=== PATIENT | male | born 1975 | race American Indian/Alaskan Native ===

== ENCOUNTER 2022-05-21 10:42 | Outpatient (REF) | payer OTHER, SELFPAY ==
--- NOTE | ~2022-05-21 | XR_ITS ---
EXAMINATION: XR CHEST CLINICAL INFORMATION: Post Covid 19. COMPARISON: Chest radiograph 09/15/2018. TECHNIQUE: 2 views of the chest were obtained. FINDINGS: No significant abnormality is noted involving the heart, lungs, mediastinum, bony thorax or soft tissues. XR/XR chest 2V IMPRESSION: Unremarkable examination.
[2022-05-21 11:39] LABS: MANUAL DIFF FLAG NO
[2022-05-21 11:54] LABS: Basophils Absolute Auto 0.1 X10*3/uL (0.0-0.2); Basophils Percent Auto 0.9 % (0-2); Eosinophils Absolute Auto 0.4 X10*3/uL (0.0-0.4); Eosinophils Percent Auto 4.8 % (0-4); Hemoglobin 14.5 g/dl (14.0-18.0); Imm Gran Abs Auto 0.02 X10*3/uL (0.00-0.03); Imm Gran Pct Auto 0.3 % (0.0-0.4); Lymphocytes Absolute Auto 2.3 X10*3/uL (1.2-4.9); Lymphocytes Percent Auto 30.2 % (20-40); Mean Corpuscular HGB Conc 31.5 g/dl (31.0-36.0); Mean Corpuscular Hemoglobin 25.5 pg (27.0-33.0); Mean Platelet Volume 11.3 fL (9.4-12.4); Monocytes Absolute Auto 0.9 X10*3/uL (0.1-1.2); Monocytes Percent Auto 11.4 % (2-11); Neutrophils Percent Auto 52.4 % (45-73); Platelet Count 301 X10*3/uL (160-400); Red Blood Count 5.68 X10*6/uL (4.60-5.80); Red Cell Distribution Width 14.3 % (11.0-16.0); White Blood Count 7.6 X10*3/uL (4.8-10.8)
[2022-05-21 12:42] LABS: Alanine Aminotransferase 55 U/L (0-40); Albumin Level 4.5 g/dL (3.5-5.0); Alkaline Phosphatase 61 U/L (39-117); Anion Gap 14 (12-20); Aspartate Amino Transferase 38 U/L (5-37); Bilirubin Total 0.6 mg/dL (0.0-1.0); Blood Urea Nitrogen 7 mg/dL (9-16); Calcium 9.3 mg/dL (8.4-10.2); Carbon Dioxide 24 mmol/L (22-29); Chloride 105 mmol/L (96-108); Cholesterol 171 mg/dL; Estimated Glomerular Filt Rate > 60; Glucose Fasting 100 mg/dL (60-99); HDL Cholesterol 31 mg/dL; LDL Cholesterol Calculated 114 mg/dl; Potassium 4.7 mmol/L (3.3-5.1); Sodium 138 mmol/L (135-145); Total Protein 7.8 g/dL (6.5-8.0); Triglycerides 133 mg/dL
[2022-05-21 13:00] LABS: TSH reflex Free T4 0.47 uIU/mL (0.32-4.0)
[2022-05-21 13:58] LABS: Appearance Urine Clear; Color Urine Yellow; Glucose Urine UA Negative (Negative); Leukocyte Esterase Urine Negative (Negative); Nitrite Urine Negative (Negative); PH 5.5 (5.0-9.0); Specific Gravity - Urine 1.025 (1.005-1.025); UMIC TRIGGER UACC YES; Urine Blood Negative (Negative); Urine Ketones Negative (Negative); Urine Protein 30 (1+) mg/dL (Neg-Trace)
[2022-05-21 14:01] LABS: Bacteria Urine None Seen (None Seen); Hyaline Casts Urine 0-2 /LPF (0-2); RBC Urine 0-2 /HPF (0-2); Squamous Epithelial Cell Urine 0-2 /HPF (0-2); WBC Urine 0-5 /HPF (0-5)
[2022-05-25 17:43] LABS: PSA, Ultra Sensitive 0.69 ng/mL
== END 2022-05-21 10:43 | disposition home or self-care (01) ==
LOC: HO.HMGCX 10:42
PROVIDERS: PCP Nurse Practitioner Family; Visit Provider Nurse Practitioner Family
DX: F52.32 Male orgasmic disorder (principal); I10 Essential (primary) hypertension; U09.9 Post COVID-19 condition, unspecified; R06.2 Wheezing
CPT/HCPCS: 36415; 71046; 80053; 80061; 81001; 84153; 84443; 85025

== ENCOUNTER → 2022-07-31 11:07 | Outpatient (BNVA) | payer OTHER, SELFPAY | PROVIDERS: PCP Nurse Practitioner Family; Visit Provider Urology | DX: N39.43 Post-void dribbling (principal) | CPT/HCPCS: 51798 ==

== ENCOUNTER → 2022-09-04 13:59 | Outpatient (BNVA) | payer OTHER, SELFPAY | PROVIDERS: PCP Nurse Practitioner Family; Visit Provider Nurse Practitioner Family | DX: Z12.11 Encounter for screening for malignant neoplasm of colon (principal); K76.0 Fatty (change of) liver, not elsewhere classified; E66.9 Obesity, unspecified; Z68.42 Body mass index [BMI] 45.0-49.9, adult | CPT/HCPCS: 99202 ==

== ENCOUNTER 2023-04-02 07:11 | Outpatient (AMB) | payer OTHER, SELFPAY ==
--- NOTE | 2023-04-02 07:18 | MHC.PC.OV ---
Intake Visit Reasons: Anxiety and migraines, scheduled per PCP Allergies No Known Allergies [No Known Allergies*] Allergy (Verified 09/04/22 14:07) Tobacco use date assessed: 05/21/22 HPI Anxiety and migraines, scheduled per PCP HPI Details Pt was seen in the ER on 03/03 c/o migraine and anxiety. Pt refused an IV and labs and was d/c. Pt reports ongoing anxiety. He has not been taking his sertraline because he did not like the way it made him feel. Pt has taken citalopram in the past which helped. He would like to start this again, will send 20mg. Denies any SI and HI. Pt is already taking alprazolam 1mg bid and I will not increase this. Will have team reach out to pt regarding a psychiatrist. Pt feels it his anxiety that trigger migraines. To treat the migraines he uses motrin, tramadol, and a dark room to sleep it off. He is reporting up to 3 migraines a week, without aura. He further reported his glasses script is not correct, which he knows can also trigger these migraines. Plan is to treat the anxiety first. [facility] Medical History (Updated 04/02/23 @ 08:20 by Niels Wright, [facility]) Fatty liver Post-COVID syndrome Blood typing encounter Anxiety Asthma Family History Father AIDS Mother Hyperlipidemia Substance use disorder Mental health disorder Brother Substance use disorder Social History Housing: Apartment Patient Tobacco Use Status: Former Tobacco user e-Cigarette/Vaping Use: Currently Using (thc) Second Hand Smoke Exposure: No service: Yes Current occupational status: employed Current occupation: [employer] Current occupational exposures/hazards: Yes Cognitive needs: No Hearing needs: No Vision needs: No Questionnaire Thrive Questionnaire Date Thrive assessed: 05/21/22 NALDO-7 AMB Questionnaire NALDO-7 Date NALDO - 7 assessed: 05/21/22 Source: Developed by Drs. Erik Danielson, Kathy Santos, Ricardo Bedoya and colleagues, with an educational asha from [employer] Review of Systems Const Reports as per HPI Physical exam (Primary Care) Tobacco/Smoking Status: Tobacco use Status Tobacco use date assessed 05/21/22 04/02/23 07:18 Patient Tobacco Use Status Former Tobacco user 04/02/23 07:18 e-Cigarette/Vaping Use Currently Using (thc) 04/02/23 07:18 Thrive Assessment: Date of Thrive Assessment Date Thrive assessed 05/21/22 04/02/23 07:18 Const General: cooperative Orientation/consciousness: patient oriented x3 Neuro General: patient oriented x3 Psych Appearance: grossly normal Mental Status: mental status grossly normal Speech and movement: Clear speech present Affect: normal affect Attitude: cooperative Thought process: Normal thought process present Thought content: Normal thought content present Insight: Good insight present (Psych) Judgement: Good judgement present (Psych) Telehealth Telehealth Location of provider rendering services: practice address Location of patient: address on file Patient Identification confirmed using: Name, : Yes Telehealth method: video Patient verbally consented to treatment: Yes Patient verbally consented to billing insurance company: Yes Patient informed of any privacy concerns related to visit: Yes Minutes spent on Phone/Video with Pt.: 10 Assessment and Plan Assessment & Plan (1) Anxiety: Code(s): F41.9 - Anxiety disorder, unspecified (2) Migraines: Code(s): G43.909 - Migraine, unspecified, not intractable, without status migrainosus Plan The patient agreed to the use of a quality engineer medical device for this encounter. Scribed for BONITA Marquis by Padmiin Fisher quality engineer medical device, on 04/02/2023 at 07:20 EST. Medications: New citalopram 20 mg PO DAILY 90 days 90 tabs 0RF citalopram 20 mg PO DAILY 90 tabs 0RF 90 days Discontinued sertraline Discontinued Reason: No Longer Medically Relevant 100 mg PO DAILY 90 days 90 tabs 1RF Coding Level of Care Code Tele Est Pt Level 3 (68836) Diagnoses Anxiety F41.9 Migraines G43.909
== END 2023-04-02 14:17 | disposition home or self-care (01) ==
LOC: HO.HMGC 07:12
PROVIDERS: PCP Nurse Practitioner Family; Visit Provider Nurse Practitioner Family
DX: F41.9 Anxiety disorder, unspecified (principal); G43.909 Migraine, unspecified, not intractable, without status migrainosus
CPT/HCPCS: 99213

== ENCOUNTER 2023-08-19 09:42 | Emergency (ER) | payer OTHER, SELFPAY ==
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
[2023-08-19 10:04] VITALS: BP 154/106; BP 164/92; PULSE 73; PULSE 78; RESP 20; TEMP 36.8; O2SAT 94; O2SAT 96; BMI 50.2
[2023-08-19] MEDS: oxyCODONE HCl Immed Release 5 MG TABLET PO (10:10)
[2023-08-19 10:22] VITALS: BP 154/106; PULSE 72; RESP 18; TEMP 36.8; O2SAT 94
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
--- NOTE | 2023-08-19 10:29 | PC.NURSE ---
RNs X2 attempted to place pt in hard collar per MD request while manually stabilizing neck. Unsuccessful, due to pts anatomy, unable to effectively place hard collar. Soft collar replaced per MD order. Vitals remained stable, pt denies any new complaints.
[2023-08-19] MEDS: HYDROmorphone HCl 2 MG TABLET PO (11:45)
[2023-08-19 13:06] VITALS: PULSE 61; RESP 16; TEMP 36.4; O2SAT 94
[2023-08-19 15:11] VITALS: BP 162/108; PULSE 68; RESP 20; TEMP 36.4; O2SAT 96
== END 2023-08-19 15:12 | disposition home or self-care (01) ==
PROVIDERS: Emergency Provider Emergency Medicine; PCP Nurse Practitioner Family
DX: S13.4XXA Sprain of ligaments of cervical spine, initial encounter (principal); S23.3XXA Sprain of ligaments of thoracic spine, initial encounter; V89.2XXA Person injured in unspecified motor-vehicle accident, traffic, initial encounter; Y93.9 Activity, unspecified; Y92.410 Unspecified street and highway as the place of occurrence of the external cause; Y99.9 Unspecified external cause status
CPT/HCPCS: 70450; 72125; 72128; 99284

== ENCOUNTER 2023-09-18 11:09 | Outpatient (AMB) | payer OTHER, SELFPAY ==
--- NOTE | 2023-09-18 11:10 | A.OFFPC_ITS ---
Vital Signs 09/18/23 11:14 Height 5 ft 10 in Weight 367 lb BMI 52.7 BP 130/92 H Blood Pressure Location Rt brachial Position Sitting Pulse 82 Pulse Source Pulse Oximeter Pulse Oximetry (%) 94 Oxygen Delivery Method Room Air Intake Visit Reasons: follow up medication Intake Note: Patient here to f/u anxiety Allergies No Known Allergies [No Known Allergies*] Allergy (Verified 09/18/23 11:14) Medication List - Last Reconciled 09/18/23 by BONITA Guevara albuterol sulfate 2.5 mg (3 mL) inhalation Q4-6H PRN 30 days albuterol sulfate 90 mcg/actuation 1 inh inhalation QID PRN alprazolam 1 mg PO BID 30 days baclofen 20 mg PO DAILY 30 days citalopram 20 mg PO DAILY 90 days cyclobenzaprine 10 mg PO TID PRN ibuprofen 800 mg PO BID PRN losartan 100 mg PO DAILY 90 days nebulizer accessories daily use/prn for asthma, post covid syndrome NS nebulizers daily use/prn for asthma, post covid syndrome NS polyethylene glycol 3350 (Miralax) 238 grams PO ONCE polyethylene glycol 3350 (Miralax) 17 grams PO DAILY sildenafil 100 mg PO DAILY PRN tramadol 50 mg PO Q6H PRN 30 days Tobacco use date assessed: 09/18/23 Dental Screening Dental Screen Date: 09/18/23 Did you have a dental visit in the last 12 months?: Yes Did you have a dental problem in the last 6 months where you did not have access to dental care?: No Was dental information given to patient?: Patient has dentist HPI follow up medication HPI Details Anxiety/depression: Pt is currently taking citalopram 20mg. He has an upcoming appointment with a new therapist. Denies any SI and HI. Pt would not like any inhalers besides ventolin. He would not like a maintenance inhaler. Pt reports ongoing orgasms when urinating. He saw urology for this but would like a different provider, will refer. HTN: increased losartan to 100mg PFSH Medical History Fatty liver Post-COVID syndrome Blood typing encounter Anxiety Asthma Family History Father AIDS Mother Hyperlipidemia Substance use disorder Mental health disorder Brother Substance use disorder Social History Housing: Apartment Patient Tobacco Use Status: Former Tobacco user e-Cigarette/Vaping Use: Currently Using (thc) Second Hand Smoke Exposure: No Substance Use Type: Marijuana service: Yes Current occupational status: employed Current occupation: [employer] Current occupational exposures/hazards: Yes Cognitive needs: No Hearing needs: No Vision needs: Yes Questionnaire PHQ-9 Over the last 2 weeks, how often have you been bothered by any of the following problems? 1. Little interest or pleasure in doing things: not at all 2. Feeling down, depressed, or hopeless: not at all 3. Trouble falling or staying asleep, or sleeping too much: more than half the days 4. Feeling tired or having little energy: several days 5. Poor appetite or overeating: nearly every day 6. Feeling bad about yourself - or that you are a failure or have let yourself or your family down: not at all 7. Trouble concentrating on things, such as reading the newspaper or watching television: not at all 8. Moving or speaking so slowly that other people could have noticed. Or the opposite - being so fidgety or restless that you have been moving around a lot more than usual: not at all 9. Thoughts that you would be better off or of hurting yourself in some way: not at all Total score: 6 Depression Screening Interpretation: Negative Depression Screening Done: Yes 00290 - PHQ-9 Billing: Yes Source: Developed by Drs. Erik Danielson, Kathy Santos, Ricardo Bedoya and colleagues, with an educational asha from [employer]. Thrive Questionnaire Date Thrive assessed: 09/18/23 I am a: Patient What is your living situation today?: I have a steady place to live Within the past 12 months, did the food you bought not last and you didn't have the money to get more?: Sometimes True Within the past 12 months, did you worry whether your food would run out before you got money to buy more?: Sometimes True Do you have trouble paying for medicines?: No Do you have trouble getting transportation to medical appointments?: No Do you have trouble paying your heating and electricity bill?: No Do you have trouble taking care of your child, family member or friend?: No Do you have trouble with day-to-day activities such as bathing, preparing meals, shopping, managing finances, etc.?: No Are you currently unemployed and looking for a job?: No Are you interested in more education?: No Currently or been in a relationship where the following occur: I choose not to answer this question THRIVE Score: 2 AUDIT C Alcohol Use Questionnaire (AUDIT-C) 1. How often do you have a drink containing alcohol?: Never 3. How often do you have six or more drinks on one occasion?: Never Total Score: 0 Score Reviewed/Action Taken: No NALDO-7 AMB Questionnaire NALDO-7 Date NALDO - 7 assessed: 09/18/23 Feeling nervous, anxious, or on edge: 3 = Nearly every day Not being able to stop or control worryin = Nearly every day Worrying too much about different things: 3 = Nearly every day Trouble relaxin = Nearly every day Being so restless that it is hard to sit still: 0 = Not at all Becoming easily annoyed or irritable: 3 = Nearly every day Feeling afraid as if something awful might happen: 0 = Not at all Total NALDO-7 score (0-4 normal; 5-9 mild; 10-14 moderate; 15-21 severe): 15 Source: Developed by Drs. Erik Danielson, Katyh Santos, Ricardo Bedoya and colleagues, with an educational asha from [employer]. NALDO-7 Assessment Billing NALDO-7 Assessment Tool: NALDO-7 Assessment 88002 (denies any si or hi, therapist appt in the near future) Review of Systems Const Reports as per HPI Physical exam (Primary Care) Vital Signs: Last Vital Signs Pulse 82 09/18/23 11:14 BP 130/92 H 09/18/23 11:14 Pulse Ox 94 09/18/23 11:14 Oxygen Delivery Method Room Air 09/18/23 11:14 BMI result Body Mass Index 52.7 Tobacco/Smoking Status: Tobacco use Status Tobacco use date assessed 09/18/23 09/18/23 11:19 Patient Tobacco Use Status Former Tobacco user 09/18/23 11:11 e-Cigarette/Vaping Use Currently Using (thc) 09/18/23 11:11 Depression Screening Interpretation: Negative Thrive Assessment: Date of Thrive Assessment Date Thrive assessed 05/21/22 09/18/23 11:11 Currently or been in a relationship where the following occur: I choose not to answer this question Const General: cooperative Nutritional Appearance: obese morbidly obese Orientation/consciousness: patient oriented x3 Resp Effort & Inspection: normal respiratory effort Auscultation: wheezes inspiratory wheezes and diminished lung sounds Cardio Rate: regular rate Rhythm: regular rhythm Heart sounds: S1 normal heart sound present and S2 normal heart sound present Neuro General: patient oriented x3 Psych Appearance: grossly normal Mental Status: mental status grossly normal Speech and movement: Normal speech and movement present Affect: normal affect Attitude: cooperative Thought process: Normal thought process present Thought content: Normal thought content present Insight: Good insight present (Psych) Judgement: Good judgement present (Psych) Assessment and Plan Assessment & Plan (1) HTN (hypertension): Code(s): I10 - Essential (primary) hypertension Plan: increased losartan (2) Depression: Code(s): F32.A - Depression, unspecified Plan: therapist appt in near future (3) Screening PSA (prostate specific antigen): Code(s): Z12.5 - Encounter for screening for malignant neoplasm of prostate (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 Scribed for EMA Marquis-BC by Padmini Fisher medical affairs manager, on 09/18/2023 at 11:25 EST. Orders: Orders Complete Blood Count Auto Diff Today F32.A - Depression, unspecified, I10 - Essential (primary) hypertension Comprehensive [place]. Panel Fast Today F32.A - Depression, unspecified, I10 - Essential (primary) hypertension UA CC w/rflx Micro + Cult Today F32.A - Depression, unspecified, I10 - Essential (primary) hypertension Prostate Specific Antigen Scr Today Z12.5 - Encounter for screening for malignant neoplasm of prostate TSH reflex Free T4 Today F32.A - Depression, unspecified, I10 - Essential ( primary) hypertension Lipid Panel Today F32.A - Depression, unspecified, I10 - Essential (primary) hypertension Referrals Urology Referral F52.32 - Male orgasmic disorder Gastroenterology Referral Z12.11 - Encounter for screening for malignant neoplasm of colon Medications: New albuterol sulfate 90 mcg/actuation (Ventolin HFA) 2 puffs inhalation Q6H PRN 8.5 grams 0RF shortness of breath or wheezing Changed From losartan 25 mg PO DAILY 90 days 90 tabs 1RF To losartan 100 mg PO DAILY 90 days 90 tabs 1RF Coding Level of Care Code Est Pt Level 3 (86164) Diagnoses HTN (hypertension) I10 Depression F32.A Screening PSA (prostate specific antigen) Z12.5 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
[2023-09-18 11:14] VITALS: BP 130/92; PULSE 82; O2SAT 94; BMI 52.7
== END 2023-09-18 12:48 | disposition home or self-care (01) ==
PROVIDERS: PCP Nurse Practitioner Family; Visit Provider Nurse Practitioner Family
DX: I10 Essential (primary) hypertension (principal); F32.A Depression, unspecified; Z12.5 Encounter for screening for malignant neoplasm of prostate; F52.32 Male orgasmic disorder; Z12.11 Encounter for screening for malignant neoplasm of colon
CPT/HCPCS: 99213

== ENCOUNTER 2023-10-22 13:10 | Outpatient (REF) | payer OTHER, SELFPAY ==
[2023-10-22 16:03] LABS: Appearance Urine Turbid; Color Urine Yellow; Glucose Urine UA Negative (Negative); Leukocyte Esterase Urine Negative (Negative); Nitrite Urine Negative (Negative); PH 5.5 (5.0-9.0); Specific Gravity - Urine 1.025 (1.005-1.025); Urine Blood Negative (Negative); Urine Ketones Trace mg/dL (Negative); Urine Protein Negative (Neg-Trace)
[2023-10-22 16:08] LABS: MANUAL DIFF FLAG NO
[2023-10-22 16:10] LABS: Basophils Absolute Auto 0.1 X10*3/uL (0.0-0.2); Basophils Percent Auto 1.2 % (0-2); Eosinophils Absolute Auto 0.2 X10*3/uL (0.0-0.4); Eosinophils Percent Auto 3.3 % (0-4); Hematocrit 47.3 % (42.0-52.0); Hemoglobin 15.1 g/dl (14.0-18.0); Imm Gran Abs Auto 0.02 X10*3/uL (0.00-0.03); Imm Gran Pct Auto 0.3 % (0.0-0.4); Lymphocytes Absolute Auto 2.3 X10*3/uL (1.2-4.9); Lymphocytes Percent Auto 33.2 % (20-40); Mean Corpuscular HGB Conc 31.9 g/dl (31.0-36.0); Mean Corpuscular Hemoglobin 27.5 pg (27.0-33.0); Mean Platelet Volume 12.2 fL (9.4-12.4); Monocytes Absolute Auto 0.7 X10*3/uL (0.1-1.2); Monocytes Percent Auto 10.3 % (2-11); Neutrophils Absolute Auto 3.6 x10*3/uL (2.0-8.3); Neutrophils Percent Auto 51.7 % (45-73); Platelet Count 266 X10*3/uL (160-400); Red Cell Distribution Width 14.6 % (11.0-16.0); White Blood Count 6.9 X10*3/uL (4.8-10.8)
[2023-10-22 16:36] LABS: Alanine Aminotransferase 65 U/L (0-40); Albumin Level 4.5 g/dL (3.5-5.0); Alkaline Phosphatase 53 U/L (39-117); Anion Gap 13 (12-20); Aspartate Amino Transferase 41 U/L (5-37); Bilirubin Total 0.4 mg/dL (0.0-1.0); Blood Urea Nitrogen 9 mg/dL (9-16); Calcium 9.9 mg/dL (8.4-10.2); Carbon Dioxide 27 mmol/L (22-29); Chloride 105 mmol/L (96-108); Cholesterol 199 mg/dL (<200); Estimated Glomerular Filt Rate > 60; Glucose Fasting 101 mg/dL (60-99); HDL Cholesterol 38 mg/dL (>40); LDL Cholesterol Calculated 130 mg/dL (<100); Potassium 4.5 mmol/L (3.3-5.1); Sodium 140 mmol/L (135-145); Triglycerides 156 mg/dL (<150)
[2023-10-22 16:51] LABS: Prostate Specific Antigen Scr 0.42 ng/mL (<0.05-4.0); TSH reflex Free T4 0.55 uIU/mL (0.32-4.0)
== END 2023-10-22 13:11 | disposition home or self-care (01) ==
LOC: HO.HMGCLDS 13:10
PROVIDERS: PCP Nurse Practitioner Family; Visit Provider Nurse Practitioner Family
DX: Z12.5 Encounter for screening for malignant neoplasm of prostate (principal); I10 Essential (primary) hypertension; F32.A Depression, unspecified
CPT/HCPCS: 36415; 80053; 80061; 81003; 84153; 84443; 85025

== ENCOUNTER 2024-04-01 13:07 | Outpatient (AMB) | payer OTHER, SELFPAY ==
[2024-04-01 13:13] VITALS: BP 132/90; PULSE 80; O2SAT 97; BMI 53.7
--- NOTE | 2024-04-01 13:13 | A.OFFPC_ITS ---
Vital Signs 04/01/24 13:13 Height 5 ft 10 in Weight 374 lb BMI 53.7 BP 132/90 H Blood Pressure Location Rt brachial Pulse 80 Pulse Source Pulse Oximeter Pulse Oximetry (%) 97 Oxygen Delivery Method Room Air Intake Visit Reasons: Annual PE Intake Note: pt is here for PE Allergies No Known Allergies [No Known Allergies*] Allergy (Verified 04/01/24 14:03) Medication List - Last Reconciled 04/01/24 by BONITA Guevara albuterol sulfate 2.5 mg (3 mL) inhalation Q4-6H PRN 30 days alprazolam 1 mg PO BID 30 days baclofen 20 mg PO DAILY 30 days citalopram 20 mg PO DAILY 90 days fluticasone furoate-vilanterol 200-25 mcg/dose 1 inh inhalation DAILY ibuprofen 800 mg PO BID PRN losartan 100 mg PO DAILY 90 days nebulizer accessories daily use/prn for asthma, post covid syndrome NS nebulizers daily use/prn for asthma, post covid syndrome NS sildenafil 100 mg PO DAILY PRN tramadol 50 mg PO Q6H PRN 30 days Ventolin HFA 90 mcg/actuation (albuterol sulfate) 2 puffs inhalation Q6H PRN NS Tobacco use date assessed: 09/18/23 Dental Screening Dental Screen Date: 09/18/23 HPI HPI Comments History of Present Illness Details Pt is here for a PE. pt was seen by GI in the past for first appt colon screen. colonoscopy pt could not make it to do to work, now he is not employed, reports he can now perform this screening test. Will reach out to GI. Pt reports still having pee-gasms where when he urinates he gets orgasms. I had referred him to urology in the past, he never went. Will resubmit this referral. #3 pt ongoing lower back pain, chronic. Pt is morbidly obese and working on this (he reports). He does report radicular symptoms when getting up from the sitting position down BLE. Denies any s/s of cauda equina. Pt is on a muscle relaxor, NSAIDS, and Tramadol currently. [facility] Medical History Fatty liver Post-COVID syndrome Blood typing encounter Anxiety Asthma Surgical History No pertinent past surgical history Family History Father AIDS Mother Hyperlipidemia Substance use disorder Mental health disorder Brother Substance use disorder Social History Housing: Apartment Patient Tobacco Use Status: Former Tobacco user e-Cigarette/Vaping Use: Currently Using (thc) Second Hand Smoke Exposure: No Substance Use Type: Marijuana service: Yes Current occupational status: employed Current occupation: [employer] Current occupational exposures/hazards: Yes Cognitive needs: No Hearing needs: No Vision needs: Yes Questionnaire PHQ-9 Over the last 2 weeks, how often have you been bothered by any of the following problems? 27894 - PHQ-9 Billing: Patient declined-do not bill Source: Developed by Drs. Erik Danielson, Ricardo Vegas and colleagues, with an educational asha from [employer]. Thrive Questionnaire Date Thrive assessed: 09/18/23 NALDO-7 AMB Questionnaire NALDO-7 Date NALDO - 7 assessed: 09/18/23 Source: Developed by Drs. Erik Danielson, Ricardo Vegas and colleagues, with an educational asha from [employer]. Review of Systems Const Denies chills and Denies fever(s) Eyes Denies blurry vision ENT Denies vertigo, Denies dizziness and Denies sore throat Card Details: intermittent wheezing Denies chest pain at rest, Denies chest pain with activity, Reports diaphoresis, Denies dyspnea and Reports dyspnea on exertion Resp Denies cough, Denies dyspnea, Reports dyspnea on exertion and Denies wheezing GI Denies abdominal pain, Denies melena, Denies hematochezia, Denies constipation, Denies diarrhea and Denies loose stools Details: does report dribbling after urination (refuses ANABEL today) Denies hematuria Musc Denies numbness and Denies tingling Skin/Breast Denies lesions Neuro Denies vertigo, Denies dizziness, Denies numbness and Denies tingling Psych Details: denies any si or hi Reports anxiety, Reports depression, Denies homicidal ideation, Denies suicidal ideation and Denies other (substance abuse) Aller/Immun Denies wheezing Physical exam (Primary Care) Vital Signs: Last Vital Signs Pulse 80 04/01/24 13:13 BP 132/90 H 04/01/24 13:13 Pulse Ox 97 04/01/24 13:13 Oxygen Delivery Method Room Air 04/01/24 13:13 BMI result Body Mass Index 53.7 Tobacco/Smoking Status: Tobacco use Status Tobacco use date assessed 09/18/23 04/01/24 13:15 Patient Tobacco Use Status Former Tobacco user 04/01/24 13:15 e-Cigarette/Vaping Use Currently Using (thc) 04/01/24 13:15 Thrive Assessment: Date of Thrive Assessment Date Thrive assessed 09/18/23 04/01/24 13:15 Const General: cooperative Nutritional Appearance: well nourished and obese morbidly obese Orientation/consciousness: patient oriented x3 HENMT Head: Yes normal to inspection, Yes normocephalic and Yes atraumatic Ears: TM normal on the right and TM normal on the left Eyes General: appearance normal, both eyes and all related structures Alignment and Position: alignment normal and position normal Neck Neck: Yes normal visual inspection, Yes no lymphadenopathy and Yes supple Resp Other: scattered wheezes throughout Effort & Inspection: normal respiratory effort Cardio Rate: regular rate Rhythm: regular rhythm Heart sounds: S1 normal heart sound present, S2 normal heart sound present and no murmurs GI Palpation (GI): Soft to palpation and nontender Auscultation: normal bowel sounds Male General Exam: Yes normal external exam Penis: normal penis Scrotum: scrotum normal, testes descended bilaterally and no inguinal hernias Testes: no testicular mass Back/Spine/Pelvis Other: able to lift BLE, without radicular symptoms. no increase in back pain with palpation of lower back. 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 F52.32 Chronic lower back pain M54.50; G89.29 Assessment & Plan Assessment & Plan (1) Physical exam: Code(s): Z00.00 - Encounter for general adult medical examination without abnormal findings Category: Medical (2) Screening PSA (prostate specific antigen): Code(s): Z12.5 - Encounter for screening for malignant neoplasm of prostate Category: Medical (3) Dribbling following urination: Code(s): N39.43 - Post-void dribbling Category: Medical Plan: Rereferring to urology, ua ordered (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: Comment: reports orgasms (without ejaculation) when urinating Code(s): F52.32 - Male orgasmic disorder Category: Medical (5) Chronic lower back pain: Code(s): M54.50 - Low back pain, unspecified; G89.29 - Other chronic pain Category: Medical Plan: cont muscle relaxor, tramadol, NSAIDS Plan XR ordered Orders: Orders UA CC w/rflx Micro + Cult Today Z00.00 - Encounter for general adult medical examination without abnormal findings Lipid Panel Today Z00.00 - Encounter for general adult medical examination without abnormal findings XR lumbar spine 2-3V Today G89.29 - Other chronic pain, M54.50 - Low back pain, unspecified Complete Blood Count Auto Diff Today Z00.00 - Encounter for general adult medical examination without abnormal findings Comprehensive [place]. Panel Fast Today Z00.00 - Encounter for general adult medical examination without abnormal findings TSH reflex Free T4 Today Z00.00 - Encounter for general adult medical examination without abnormal findings Prostate Specific Antigen Scr Today Z12.5 - Encounter for screening for malignant neoplasm of prostate Referrals Urology Referral F52.32 - Male orgasmic disorder, N39.43 - Post-void dribbling Medications: Refilled fluticasone furoate-vilanterol 200-25 mcg/dose 1 inh inhalation DAILY 60 ea 1RF
== END 2024-04-01 13:47 | disposition home or self-care (01) ==
PROVIDERS: PCP Nurse Practitioner Family; Visit Provider Nurse Practitioner Family
DX: Z00.00 Encounter for general adult medical examination without abnormal findings (principal); Z12.5 Encounter for screening for malignant neoplasm of prostate; N39.43 Post-void dribbling; F52.32 Male orgasmic disorder; M54.50 Low back pain, unspecified; G89.29 Other chronic pain

== ENCOUNTER 2024-04-01 13:07 | Outpatient (REF) | payer OTHER, SELFPAY | END 2024-04-01 13:08 | disposition home or self-care (01) | LOC: HO.HMGCX 13:07 | PROVIDERS: PCP Nurse Practitioner Family; Visit Provider Nurse Practitioner Family | DX: M54.50 Low back pain, unspecified (principal); G89.29 Other chronic pain; Z00.00 Encounter for general adult medical examination without abnormal findings | CPT/HCPCS: 72100; 99396 ==

== ENCOUNTER 2024-06-11 15:37 | Outpatient (AMB) | payer OTHER, SELFPAY ==
--- OUTSIDE RECORDS SUMMARY | 2024-06-11 15:39 | XMS_ITS | Clinical Summary ---
Author Organization [facility] ity Address [address] [place] [address] Care Team Providers Care Supervisor Grinding Name Role Phone Unavailable Primary Care Provider Unavailabl e Social History Tobacco Use Types Packs/Day Years Used Date Smoking Tobacco: Never Assessed Sex and Gender Information Value Date Recorded Sex Assigned at Not on file Legal Sex Male 12:09 PM EST Gender Identity Not on file Sexual Orientation Not on file Plan of Treatment Health Maintenance Due Date Last Done Comments DTaP,Tdap,and Td Vaccines (1 - Tdap) 1993 Hepatitis B Vaccines (1 of 3 - 19+ 3-dose series) 1993 COVID-19 Vaccine ( - 2023-2 5 season) 2023 Influenza Vaccine (#1) 2023 Pneumococcal Vaccine: 50+ Ye ars (1 of 1 - PCV) 2024 Zoster Vaccines (1 of 2) 2024 HIB Vaccines Aged Out No longer eligi ble based on patient's age to complete this topic HPV Vaccines Aged Out No longer eligi ble based on patient's age to complete this topic Hepatitis A Vaccines Aged Out No long er eligible based on patient's age to complete this topic IPV Vaccines Aged Out No longer eligi ble based on patient's age to complete this topic MMR Vaccines Aged Out No longer eligi ble based on patient's age to complete this topic Meningococcal ACWY Vaccine Aged Out N o longer eligible based on patient's age to complete this topic Meningococcal B Vacine Aged Out No lo nger eligible based on patient's age to complete this topic Pneumococcal Vaccine: Pediat rics (0 to 5 Years) and At-Risk Patients (6 to 64 Years) Aged Out No longer eligible b ased on patient's age to complete this topic RSV Immunization Patients Un jennifer 20 months Aged Out No longer eligible b ased on patient's age to complete this topic Varicella Vaccines Aged Out No longer eligible based on patient's age to complete this topic
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
== END 2024-06-11 16:52 | disposition home or self-care (01) ==
LOC: HO.HOP 15:37
PROVIDERS: PCP Nurse Practitioner Family; Visit Provider Clinical Nurse Specialist Psychiatric/Mental Health
DX: F43.12 Post-traumatic stress disorder, chronic (principal); F41.0 Panic disorder [episodic paroxysmal anxiety]
CPT/HCPCS: 90792

== ENCOUNTER → 2024-06-11 15:37 | Outpatient (BNVA) | payer OTHER, SELFPAY | PROVIDERS: PCP Nurse Practitioner Family; Visit Provider Clinical Nurse Specialist Psychiatric/Mental Health | DX: F43.12 Post-traumatic stress disorder, chronic (principal); F41.0 Panic disorder [episodic paroxysmal anxiety] | CPT/HCPCS: 90792 ==

== ENCOUNTER 2024-07-08 06:23 | Day surgery (SDC) | payer OTHER, SELFPAY ==
[2024-07-06 13:38] VITALS: BMI 53.7
--- NOTE | 2024-07-07 08:23 | P.CONAN_ITS ---
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) Dribbling following urination (Acute) Stool incontinence (Acute) Screening for colon cancer (Acute) HTN (hypertension) (Acute) Blood typing encounter (Acute) Screening PSA (prostate specific antigen) (Acute) Anxiety (Acute) Chronic pain disorder (Acute) Anxiety (Acute) Post-COVID syndrome (Acute) Past Medical History Medical History (Updated 07/06/24 @ 13:34 by Tabatha Alcantara RN) HTN (hypertension) Migraines Depression DDD (degenerative disc disease), lumbar Fatty liver Post-COVID syndrome Anxiety Asthma Family History Family History Father AIDS Mother Hyperlipidemia Substance use disorder Mental health disorder Brother Substance use disorder Surgical History Surgical History No pertinent past surgical history Social History Social History Housing: Apartment Patient Tobacco Use Status: Former Tobacco user e-Cigarette/Vaping Use: Currently Using (thc) Second Hand Smoke Exposure: No Use of substances other than those prescribed or required for medical reasons: Yes Substance Use Type: Marijuana Substance Use Type Other:: last used last night at 0300 Substance Use Frequency: Daily Are you DNR?: No Advance Directives: No Advance Directives Information Provided: Yes service: Yes Current occupational status: employed Current occupation: [employer] Current occupational exposures/hazards: Yes Cognitive needs: No Hearing needs: No Vision needs: Yes Meds Allergies Allergy/AdvReac Type Severity Reaction Status Date / Time No Known Allergies Allergy Verified 07/08/24 06:58 [No Known Allergies*] Exam Height,Weight and Vital Signs: Height 5 ft 10 in Weight 169.644 kg Assessment and Plan Assessment Anesthesia Assessment: Chart Reviewed Documented by User: Natalio Ashton MD 07/08/24 07:33 PMFSH Past Medical History Medical History (Updated 07/06/24 @ 13:34 by Tabatha Alcantara RN) HTN (hypertension) Migraines Depression DDD (degenerative disc disease), lumbar Fatty liver Post-COVID syndrome Anxiety Asthma Family History Family History Father AIDS Mother Hyperlipidemia Substance use disorder Mental health disorder Brother Substance use disorder Family history of problems with anesthesia: No Surgical History Surgical History No pertinent past surgical history History of Problems with Anesthesia: No Social History Social History Housing: Apartment Patient Tobacco Use Status: Former Tobacco user e-Cigarette/Vaping Use: Currently Using (thc) Second Hand Smoke Exposure: No Use of substances other than those prescribed or required for medical reasons: Yes Substance Use Type: Marijuana Substance Use Type Other:: last used last night at 0300 Substance Use Frequency: Daily Are you DNR?: No Advance Directives: No Advance Directives Information Provided: Yes service: Yes Current occupational status: employed Current occupation: [employer] transport Current occupational exposures/hazards: Yes Cognitive needs: No Hearing needs: No Vision needs: Yes Meds Allergies Allergy/AdvReac Type Severity Reaction Status Date / Time No Known Allergies Allergy Verified 07/08/24 06:58 [No Known Allergies*] Exam Airway Mallampati Class: I TM Dist: <=3cm Neck ROM: Full Loose/Missing/Broken Teeth: Yes, Upper and Lower Heart: ok Lungs: ok Assessment and Plan Assessment Anesthesia Assessment: Anesthesia Plan Discussed Final Anesthetic Review Family History of Problems with Anesthesia: No History of Problems with Anesthesia: No NPO: Yes ASA Class: III Final Preanesthetic Review: No Changes in Pt Med Stat, Meds/Allgs Chart Reviewed, Consent Obtained/Reviewed and Anes Risks/Benef Reviewed Patient Risk: High Procedure Risk: Low Anesthetic Plan Anesthetic Plan: MAC: and Agree w/ Assess. and Plan Disposition: Standard PACU
--- NOTE | 2024-07-08 06:51 | MHC.SHP ---
Pre-Procedural Eval Section A - 24 Hr Update-Section A only Date of Service: 07/08/24 Section B - Complete if H&P > 30 days Chief Complaint: screening Relevant Family History (Specify if Yes): No Relevant Social History: Other (specify) Present Medications: see Short Stay Collaborative assessment Medical History: Significant History (HTN (hypertension) Migraines Depression DDD (degenerative disc disease), lumbar Fatty liver Post-COVID syndrome Anxiety Asthma) History of Previous Operations: No relevant previous surgery Allergies: Allergies Allergy/AdvReac Type Severity Reaction Status Date / Time No Known Allergies Allergy Verified 04/01/24 14:03 [No Known Allergies*] Review of Systems Sugical H&P ROS: Negative: Cardiovascular, Respiratory, Neurological, Psychiatric, Hem-Onc, Allergic/Immunologic, Gastrointestinal, Genitourinary, Musculoskeletal, Integumentary, Endocrine and Eyes/Ears/Nose/Throat and Yes, Specify: Constitution (obese) Exam Surgical H&P Exam: Normal: HEENT, Normal: Heart, Normal: Lungs, Normal: Extremities, Normal: Abdomen, Normal: Skin and Normal: Neurological Plan Diagnosis/Plan: Unchanged I have reviewed the history and physical and performed a pertinent physical examination on my patient. No changes have occurred unless specified. Time Spent With Patient Time: Total time managing care of this patient today ____ minutes.
[2024-07-08 07:03] VITALS: BP 159/111; PULSE 80; RESP 18; TEMP 36.6; O2SAT 97; BMI 54.0
[2024-07-08] MEDS: Lactated Ringers 1,000 ML 100 ML IVCONT (07:42)
--- NOTE | 2024-07-08 08:07 | HO.OPN-COLON ---
Colonoscopy Operative Note Operative Note Date of Service: 07/08/24 Narrative: Operative Information Procedure Description: Colonoscopy Indication: screening Anesthesia: MAC COLONOSCOPY Instrument: Olympus variable stiffness ADULT scope 190L Colonoscopy Monitoring: Vital signs and clinical assessment, continuous EKG monitoring, Pulse oximetry, Carbon Dioxide monitoring and blood pressure monitoring were done throughout the procedure. Colon withdrawal time was 8 minutes. Procedure: The patient was placed in the left lateral decubitis position and pre-procedure medications were administered. After a digital rectal examination of the ano-rectum, the video colonoscope was inserted into the rectum and advanced through the colon to the cecum/TI. The colonoscope was slowly withdrawn in a retrograde panoramic fashion and the colon mucosa was carefully examined including a retroflexed view of the rectum. Findings and interventions are described below. Procedure Difficulty: easy Findings: Terminal Ileum-normal Cecum:normal Ascending Colon: normal Transverse Colon -normal Descending Colon: 8 mm sessile polyp removed with cold snare Sigmoid Colon: normal Rectum: Retroflexion with medium sized inflammed internal hemorrhoids seen, grade I Anorectum - possible anal wart like lesion noted in the anal canal Intervention: cold snare Colon preparation: [place] Bowel Preparation Scale Right colon; 2 Transverse colon: 2 Left colon; 2 (0 = Unprepared colon segment with mucosa not seen due to solid stool that cannot be cleared. 1 = Portion of mucosa of the colon segment seen, but other areas of the colon segment not well seen due to staining, residual stool and/or opaque liquid. 2 = Minor amount of residual staining, small fragments of stool and/or opaque liquid, but mucosa of colon segment seen well. 3 = Entire mucosa of colon segment seen well with no residual staining, small fragments of stool or opaque liquid) Impression and Post Procedure Diagnosis: colon polyp internal hemorrhoids anal wart Plan: High fiber diet leaflet Avoid straining at stool, epsom salts and sitz bath, anusol supps or cream Repeat Colonoscopy in 5 years if adenomatous polyp, 10 yrs if hyperplastic or earlier if clinically indicated refer colorectal to inspect the anal area Above findings were reviewed with the patient and relevant handouts were provided if indicated.
[2024-07-08 08:13] VITALS: BP 137/84; PULSE 91; RESP 20; TEMP 36.8; O2SAT 95
[2024-07-08 08:28] VITALS: BP 146/91; PULSE 70; RESP 20; O2SAT 97
[2024-07-08] MEDS: ondansetron HCL 4 MG/2 ML VIAL IVPUSH (08:33)
[2024-07-08 08:43] VITALS: BP 138/84; PULSE 71; RESP 20; O2SAT 96
[2024-07-08 08:58] VITALS: BP 147/86; PULSE 67; RESP 16; TEMP 36.8; O2SAT 97
== END 2024-07-08 09:12 | disposition home or self-care (01) ==
PROVIDERS: PCP Nurse Practitioner Family; Visit Provider Internal Medicine Gastroenterology
PROC: 0DJD8ZZ Inspection of Lower Intestinal Tract, Via Natural or Artificial Opening Endoscopic (ICD-10-PCS; CPT 45378; principal; 2024-07-08 07:30)
DX: Z12.11 Encounter for screening for malignant neoplasm of colon (principal); D12.4 Benign neoplasm of descending colon; K57.30 Diverticulosis of large intestine without perforation or abscess without bleeding; K64.0 First degree hemorrhoids; K59.00 Constipation, unspecified; A63.0 Anogenital (venereal) warts; K76.0 Fatty (change of) liver, not elsewhere classified; I10 Essential (primary) hypertension; G43.909 Migraine, unspecified, not intractable, without status migrainosus; J45.909 Unspecified asthma, uncomplicated; M51.369 Other intervertebral disc degeneration, lumbar region without mention of lumbar back pain or lower extremity pain; F41.9 Anxiety disorder, unspecified; Z87.891 Personal history of nicotine dependence
CPT/HCPCS: 45385; 88305; J1596; J2003; J2405; J2704; J3010

== ENCOUNTER → 2024-07-08 06:23 | Outpatient (BNV) | payer OTHER, SELFPAY | PROVIDERS: PCP Nurse Practitioner Family; Visit Provider Internal Medicine Gastroenterology | DX: Z12.11 Encounter for screening for malignant neoplasm of colon (principal); D12.4 Benign neoplasm of descending colon; K64.0 First degree hemorrhoids; A63.0 Anogenital (venereal) warts | CPT/HCPCS: 45385 ==